=== PATIENT | male | born 1990 | race African-American/Black ===

== ENCOUNTER 2024-07-17 07:06 | Emergency (ER) | payer SELFPAY ==
[~2024-07-17] VITALS: Ht 165.1 cm; Wt 59.0 kg
[2024-07-17 07:25] VITALS: O2SAT 100
[2024-07-17] MEDS: TETRACAINE 0.5% OPHTH DROPS 4ML LEFTEYE ONE (07:59)
[2024-07-17] MEDS: FLUORESCEIN SODIUM 1MG/STRIP LEFTEYE ONE (07:59)
[2024-07-17] MEDS: KETOROLAC 15MG/ML VIAL IV ONE (07:59)
[2024-07-17 08:00] LABS: BASOPHILS % 0.6 % (0.0-2.0); DIFFERENTIAL COMMENT 0; EOSINOPHILS % 0.9 % (0.0-5.0); HEMATOCRIT. 48.3 % (42.0-52.0); HEMOGLOBIN. 15.8 g/dL (14.0-18.0); LYMPHOCYTES % 36.1 % (20.0-50.0); MEAN CORPUSCULAR HEMOGLOBIN 30.3 pg (28.0-32.0); MEAN CORPUSCULAR HGB CONC 32.8 g/dL (31.0-37.0); MEAN CORPUSCULAR VOLUME 92.5 fL (80.0-94.0); MEAN PLATELET VOLUME 8.7 fl (7.4-10.4); MONOCYTES % 10.4 % (2.0-8.0); PLATELET 204 x1000/uL (130-400); RED BLOOD CELL COUNT 5.22 mill/uL (4.7-6.1); RED CELL DISTRIBUTION WIDTH 14.7 % (11.6-14.6); WHITE BLOOD COUNT 6.6 x1000/uL (4.5-11.0)
[2024-07-17 08:09] LABS: CHLORIDE 105 mEq/L (98-107); POTASSIUM 4.1 mEq/L (3.5-5.1); SODIUM 137 mEq/L (136-145)
[2024-07-17 08:10] LABS: CALCIUM 10.1 mg/dL (8.7-10.4); CARBON DIOXIDE 26 mEq/L (21-32)
[2024-07-17 08:15] LABS: CREATININE 1.1 mg/dL (0.6-1.3); GLUCOSE 116 mg/dL (70-105); UREA NITROGEN BLOOD 11 mg/dL (9-23)
[2024-07-17] MEDS ORDERED: AMOX1TAB16 MT (10:41)
[2024-07-17] MEDS: IOHEXOL-300 100 ML BOTTLE ONE (11:06)
[2024-07-17 11:34] VITALS: BP 113/77; PULSE 68; RESP 16; TEMP 36.5; O2SAT 100
== END 2024-07-17 11:46 | disposition home or self-care (01) ==
LOC: ER 07:06
DX: L03.213 Periorbital cellulitis (principal); H16.002 Unspecified corneal ulcer, left eye; Z79.2 Long term (current) use of antibiotics
CPT/HCPCS: 99285; 96374; 70481; 80048; 85025; 87070; 36415; J1885; Q9967